=== PATIENT | male | born 1970 | race Hispanic/Latino ===

== ENCOUNTER 2018-04-04 05:58 | Emergency (ER) | payer OTHER ==
[2018-04-04] MEDS ORDERED: TRAMADOL HCL 50 MG TABLET ONE (06:32)
== END 2018-04-04 06:50 | disposition home or self-care (01) ==
LOC: EDH 05:58
DX: M25.512 Pain in left shoulder (principal)
CPT/HCPCS: 71045; 73030

== ENCOUNTER 2018-07-13 10:31 | Day surgery (SDC) | payer OTHER ==
[2018-07-12 13:07] VITALS: BP 123/70
[2018-07-12 13:22] LABS: BASOPHILS % (AUTO) 0.7 % (0.0-5.0); EOSINOPHILS % (AUTO) 3.1 % (0.0-8.0); HEMATOCRIT 45.8 % (42-54); LYMPHOCYTES % (AUTO) 27.1 % (21.0-51.0); MEAN CORPUSCULAR HEMOGLOBIN 32.5 pg (27.0-33.0); MEAN CORPUSCULAR HGB CONC 34.9 g/dL (32.0-36.0); MEAN CORPUSCULAR VOLUME 93.2 fL (79-99); MONOCYTES % (AUTO) 7.3 % (3.0-13.0); NEUTROPHILS % (AUTO) 61.8 % (40.0-77.0); PLATELET COUNT (AUTO) 215 K/uL (130-400); RED BLOOD CELL COUNT(AUTO) 4.92 MIL/uL (4.50-6.20); RED CELL DISTRIBUTION WIDTH 13.4 % (11.0-15.5); WHITE BLOOD COUNT (AUTO) 6.6 K/uL (4.8-10.8)
[2018-07-12 13:28] LABS: CREATININE 1.1 mg/dL (0.5-1.5); POTASSIUM 4.1 mmol/L (3.5-5.1)
[2018-07-12] MEDS: CEFAZOLIN SODIUM 1 GM VIAL IVP SCH (15:45)
[~2018-07-13] VITALS: Ht 180.3 cm; Wt 93.7 kg
[2018-07-13] VITALS (13 sets, daily range): BP systolic 102–133; BP diastolic 45–81
[~2018-07-13 10:31] MED LIST: ASPI-1181 PO; ATOR10 PO
[2018-07-13] MEDS ORDERED: LACTATED RINGERS 1000ML 1,000 ML IV ONE (11:39)
[2018-07-13] MEDS ORDERED: LIDOCAINE PF 2% 5ML ABBOJECT ONE (11:54)
[2018-07-13] MEDS ORDERED: NEOSTIGMINE 5MG/5ML SYR IV ONE (11:55)
[2018-07-13] MEDS ORDERED: MIDAZOLAM HCL 1 MG/ML 2ML VIAL ONE (11:55)
[2018-07-13] MEDS ORDERED: DEXAMETHASONE SOD PHOSPHATE 10MG/ML 1ML VIAL ONE (11:55)
[2018-07-13] MEDS ORDERED: ROCURONIUM 10MG/1ML SYR 10 MG/ML ML ONE (11:55)
[2018-07-13] MEDS ORDERED: PROPOFOL 10 MG/ML 20ML VIAL IV ONE (11:55)
[2018-07-13] MEDS ORDERED: ONDANSETRON HCL 4 MG/2 ML VIAL ONE ×2 (11:55→18:31)
[2018-07-13] MEDS ORDERED: FENTANYL CITRATE PF 50 MCG/1 ML 2ML VIAL ONE ×3 (11:56→16:38)
[2018-07-13] MEDS ORDERED: GLYCOPYRROLATE 1 MG/5 ML SYRINGE ONE (11:57)
[2018-07-13] MEDS ORDERED: ROPIVACAINE 0.5% 5MG/ML 30ML IJ ONE (11:57)
[2018-07-13] MEDS ORDERED: EPINEPHRINE 1 MG/ML 30ML VIAL IJ ONE (12:02)
[2018-07-13] MEDS: CEFAZOLIN SODIUM 1 GM VIAL IVP SCH (14:37)
[2018-07-13] MEDS ORDERED: SUCCINYLCHOLINE CHLORIDE 20 MG/ML 10 ML VIAL ONE (15:23)
[2018-07-13] MEDS ORDERED: OCTYL 2-CYANOACRYLATE 1 EACH TP ONE (16:37)
[2018-07-13] MEDS ORDERED: HYDR-4457 PO (17:02)
[2018-07-13] MEDS ORDERED: CEPH-578 PO (17:02)
[2018-07-13] MEDS ORDERED: MEPERIDINE-PF 25 MG/ML SYG ONE (17:20)
[2018-07-13] MEDS ORDERED: ONDANSETRON HCL 4 MG/2 ML VIAL IVP PRN (19:30)
[2018-07-13] MEDS ORDERED: LACTATED RINGERS 1000ML 1,000 ML IV SCH (19:30)
== END 2018-07-13 19:06 | disposition home or self-care (01) ==
LOC: DAH 10:31
PROVIDERS: ATTEND Orthopaedic Surgery
DX: M75.102 Unspecified rotator cuff tear or rupture of left shoulder, not specified as traumatic (principal); M75.42 Impingement syndrome of left shoulder; M19.012 Primary osteoarthritis, left shoulder; Z79.899 Other long term (current) drug therapy; Z98.890 Other specified postprocedural states; G89.29 Other chronic pain; G47.33 Obstructive sleep apnea (adult) (pediatric)
CPT/HCPCS: 29822; 29824; 29826; 29827; 36415; 80048; 85025; 88304; 88311; A4565; A4649 ×4; A4930 ×2; A6204; J0171; J0330; J0690; J1100; J2001; J2175; J2250; J2405 ×2; J2704; J2710; J2795; J3010 ×3; J3490; J7030; J7120

== ENCOUNTER 2018-09-06 06:18 | Emergency (ER) | payer OTHER ==
[~2018-09-06 06:18] MED LIST changes: +CEPH-578 PO; +HYDR-4457 PO
[2018-09-06] MEDS ORDERED: OCTYL 2-CYANOACRYLATE 1 EACH TP ONE (06:47)
== END 2018-09-06 07:10 | disposition home or self-care (01) ==
LOC: EDH 06:18
DX: S61.011A Laceration without foreign body of right thumb without damage to nail, initial encounter (principal); Z98.890 Other specified postprocedural states; X58.XXXA Exposure to other specified factors, initial encounter; Y93.89 Activity, other specified; Y92.098 Other place in other non-institutional residence as the place of occurrence of the external cause; Y99.8 Other external cause status
CPT/HCPCS: 12041

== ENCOUNTER 2018-12-30 01:08 | Emergency (ER) | payer OTHER ==
[2018-12-30] MEDS ORDERED: METOCLOPRAMIDE 10 MG/2 ML VIAL ONE ×2 (02:52→03:00)
[2018-12-30] MEDS ORDERED: DiphenhydrAMINE HCL 50 MG/ML VIAL ONE ×2 (02:52→03:01)
[2018-12-30] MEDS ORDERED: METHYLPREDNISOLONE SOD SUCC 40MG/ML 1ML ONE ×2 (02:52→03:01)
[2018-12-30] MEDS ORDERED: KETOROLAC TROMETHAMINE 15MG/ML ONE ×2 (02:52→03:01)
[2018-12-30] MEDS ORDERED: SODIUM CHLORIDE 0.9% 1000ML 1,000 ML IV ONE (03:01)
== END 2018-12-30 05:02 | disposition home or self-care (01) ==
LOC: EDH 01:08
DX: G43.909 Migraine, unspecified, not intractable, without status migrainosus (principal); Z79.899 Other long term (current) drug therapy; Z98.890 Other specified postprocedural states
CPT/HCPCS: 70450; 96374; 96375; 99284; J1200; J1885; J2765; J2920; J7030